=== PATIENT | male | born 1965 | race Caucasian/White ===

== ENCOUNTER 2016-08-22 04:44 | Inpatient (IN) | payer OTHER ==
[2016-08-22 06:05] VITALS: BMI 32.5
--- NOTE | 2016-08-22 06:07 | PDOC ---
History of Present Illness - History of Present Illness Initial Comments: 08/22/16 06:49 Patient is a 51 year old male with significant medical hx of DM and HTN who is presenting to the ED with abdominal pain and vomiting since 8PM last night. Last night the patient ate dinner and developed diffuse abdominal pain afterwards. He then had 3-4 episodes of nausea and vomiting. The patient reports he did not eat anything out of the ordinary; he had chicken for dinner. Patient denies chest pain, shortness of breath, dysuria, flank pain, fever, or chills. Surgical Hx: hernia repairs NKDA <Priscilla Powell - Last Filed: 08/22/16 06:48> <Belen Charles - Last Filed: 08/24/16 01:42> - General Chief Complaint: Pain, Acute Stated Complaint: STOMACH PAIN Time Seen by Provider: 08/22/16 06:06 Past History <Priscilla Powell - Last Filed: 08/22/16 06:48> - Psycho/Social/Smoking Cessation Hx Suicidal Ideation: No Smoking History: Never smoked <Belen Charles - Last Filed: 08/24/16 01:42> - Past Medical History Allergies/Adverse Reactions: Allergies Allergy/AdvReac Type Severity Reaction Status Date / Time morphine AdvReac Nausea Verified 08/22/16 06:45 Home Medications: Ambulatory Orders Lisinopril/Hydrochlorothiazide [Zestoretic 20-12.5 mg Tablet] 1 each PO DAILY Metformin HCl [Glucophage -] 500 mg PO BID 08/22/16 Review of Systems - Review of Systems Comments:: 08/22/16 06:52 CONSTITUTIONAL: Absent: fever, chills, diaphoresis, generalized weakness, malaise, loss of appetite HEENT: Absent: rhinorrhea, nasal congestion, throat pain, throat swelling, difficulty swallowing, mouth swelling, ear pain, eye pain, visual changes CARDIOVASCULAR: Absent: chest pain, syncope, palpitations, irregular heart rate, lightheadedness , peripheral edema RESPIRATORY: Absent: cough, shortness of breath, dyspnea with exertion, orthopnea, wheezing, stridor, hemoptysis GASTROINTESTINAL: Present: abdominal pain, nausea, vomiting Absent: abdominal distension, diarrhea, constipation, melena, hematochezia GENITOURINARY: Absent: dysuria, frequency, urgency, hesitancy, hematuria, flank pain, genital pain MUSCULOSKELETAL: Absent: myalgia, arthralgia, joint swelling SKIN: Absent: rash, itching, pallor HEMATOLOGIC/IMMUNOLOGIC: Absent: easy bleeding, easy bruising, lymphadenopathy, frequent infections ENDOCRINE: Absent: unexplained weight gain, unexplained weight loss, heat intolerance, cold intolerance NEUROLOGIC: Absent: headache, focal weakness or paresthesia, dizziness, unsteady gait, seizure, mental status changes, bladder or bowel incontinence. PSYCHIATRIC: Absent: anxiety, depression, suicidal or homicidal ideation, hallucinations <Priscilla Powell - Last Filed: 08/22/16 06:48> *Physical Exam - Vital Signs Last Vital Signs Temp Pulse Resp BP Pulse Ox 97.8 F 96 H 26 H 156/88 98 08/22/16 06:03 08/22/16 06:03 08/22/16 06:03 08/22/16 06:03 08/22/16 06:03 - Physical Exam Comments: 08/22/16 06:53 GENERAL: Well developed, well nourished. Awake and alert. No acute distress. HEENT: Normocephalic, atraumatic. PERRLA, EOMI. No conjunctival pallor. Sclera are non- icteric. Moist mucous membranes. Oropharynx is clear. NECK: Supple. Full ROM. No JVD. Carotid pulses 2+ and symmetric, without bruits. No thyromegaly. No lymphadenopathy. CARDIOVASCULAR: Regular rate and rhythm. No murmurs, rubs, or gallops. Distal pulses are 2+ and symmetric. PULMONARY: No evidence of respiratory distress. Lungs clear to auscultation bilaterally. No wheezing, rales or rhonchi. ABDOMINAL: Soft. Diffuse abdominal tenderness. Non-distended. No rebound or guarding. No organomegaly. Normoactive bowel sounds. MUSCULOSKELETAL: Normal range of motion at all joints. No bony deformities or tenderness. No CVA tenderness. EXTREMITIES: No cyanosis. No clubbing. No edema. No calf tenderness. SKIN: Warm and dry. Normal capillary refill. No rashes. No jaundice. NEUROLOGICAL: Alert, awake, appropriate. Cranial nerves 2-12 intact. Normal speech. Gait is normal without ataxia. PSYCHIATRIC: Cooperative. Good eye contact. Appropriate mood and affect. <Priscilla Powell - Last Filed: 08/22/16 06:48> - Vital Signs Last Vital Signs Temp Pulse Resp BP Pulse Ox 97.8 F 96 H 26 H 156/88 98 08/22/16 06:03 08/22/16 06:03 08/22/16 06:03 08/22/16 06:03 08/22/16 06:03 <Belen Charles - Last Filed: 08/24/16 01:42> ED Treatment Course - Medications Given in the ED: ED Medications Discontinued Medications Generic Name Dose Route Start Last Admin Trade Name Luis Manuel PRN Reason Stop Dose Admin Morphine Sulfate 2 mg 08/22/16 06:22 08/22/16 06:45 Morphine Injection - IVPUSH 08/22/16 06:23 Not Given ONCE ONE Sodium Chloride 1,000 ml 08/22/16 06:22 08/22/16 06:45 Normal Saline - IV 08/22/16 06:23 1,000 ml ONCE ONE Administration <Priscilla Powell - Last Filed: 08/22/16 06:48> - LABORATORY CBC & Chemistry Diagram: 08/23/16 07:00 08/23/16 07:00 <Belen Charles - Last Filed: 08/24/16 01:42> Medical Decision Making - Medical Decision Making 08/22/16 07:06 PT COMES WITH ABDOMINAL PAIN THAT BEGAN LAST NIGHT AFTER EATING CHICKEN CHEESE AND A SHAY. PAIN KEPT GETTING WORSE SO HE CAME TO THE ER. PAIN SOUNDS LIKE GAS PAIN. PT IS GASSY AT THE LOWER ABDOMEN AND THE LEFT ABDOMEN. NO FLANK PAIN AND NO DYSURIA. PT HAS NEVER HAD KIDNEY STONES, BUT HIS MOM DID. NO RUQ PAIN AND NO DISTENSION. CXR IS NORMAL. PT HAS NO FEVER OR CHILLS. URINE AT BEDSIDE. PT WILL DRINK FOR AN ABD/PELVIS CT SCAN (TO BE DONE AT 9AM) D/C HOME IF LABS AND CT SCAN ARE NORMAL. I WILL SIGN PATIENT OUT TO THE DAY ER DOC. <Belen Charles - Last Filed: 08/24/16 01:42> *DC/Admit/Observation/Transfer - Attestations Scribe Attestion: 08/22/16 06:54 Documentation prepared by Priscilla Powell, acting as medical device engineer for Belen Charles MD. <Priscilla Powell - Last Filed: 08/22/16 06:48> <Belen Charles - Last Filed: 08/24/16 01:42> Diagnosis at time of Disposition: Small bowel obstruction, partial - Discharge Dispostion Condition at time of disposition: Guarded - Referrals
[2016-08-22] MEDS ORDERED: morphine CARPU-JECT 2 MG/1 ML DISP.SYRIN IVPUSH ONE (06:22)
[2016-08-22] MEDS ORDERED: SODIUM CHLORIDE 0.9% 500 ML INFUS.BAG IV ONE (06:22)
[2016-08-22] MEDS ORDERED: morphine CARPU-JECT 2 MG/1 ML DISP.SYRIN ONE (06:32)
[2016-08-22] MEDS ORDERED: KETOROLAC TROMETHAMINE 30 MG/1 ML VIAL IVPUSH ONE (06:46)
[2016-08-22] MEDS ORDERED: KETOROLAC TROMETHAMINE 30 MG/1 ML VIAL ONE (06:50)
[2016-08-22 07:03] LABS: BASOPHIL 0.2 % (0-2.0); MCHC 34.2 g/dl (32.0-35.9); MEAN CELL VOLUME 90.5 fl (80-96); NEUTROPHILS 89.9 % (42.8-82.8); PLATELET COUNT 179 K/MM3 (134-434); RDW 13.1 % (11.9-15.9); WHITE BLOOD COUNT 10.9 K/mm3 (4.0-10.0)
[2016-08-22 07:04] LABS: URINE APPEARANCE CLEAR; URINE BILIRUBIN NEGATIVE (NEGATIVE); URINE COLOR STRAW; URINE GLUCOSE (UA) 3+ (NEGATIVE); URINE KETONE 2+ (NEGATIVE); URINE LEUK ESTERASE NEGATIVE (NEGATIVE); URINE NITRITE NEGATIVE (NEGATIVE); URINE PROTEIN NEGATIVE (NEGATIVE); URINE UROBILINOGEN NEGATIVE E.U./dl (0.2-1.0)
[2016-08-22 07:11] LABS: URINE BLOOD 1+ (NEGATIVE)
[2016-08-22 07:13] LABS: URINE RBC 1 /hpf (0-3); URINE WBC <1 /hpf (3-5)
[2016-08-22 07:26] LABS: ALBUMIN 4.2 g/dl (3.4-5.0); ANION GAP 12 (8-16); BILIRUBIN,TOTAL 0.6 mg/dL (0.2-1.0); CALCIUM 9.9 mg/dL (8.5-10.1); CO2 28 mmol/L (21-32); CREATININE 0.9 mg/dL (0.7-1.3); SGPT/ALT 45 U/L (12-78); TOT PROT 8.1 g/dl (6.4-8.2)
[2016-08-22 07:27] LABS: INR 1.04 (0.82-1.09); PROTHROMBIN TIME (PATIENT) 11.5 SEC (9.98-11.88)
[2016-08-22 07:29] LABS: ALK PHOS 106 U/L (45-117); TROPONIN I < 0.02 ng/ml (0.00-0.05)
[2016-08-22 07:30] LABS: SGOT/AST 26 U/L (15-37)
[2016-08-22 07:31] LABS: GLUCOSE,RANDOM 412 mg/dL (74-106)
--- NOTE | 2016-08-22 07:35 | PDOC ---
*Physical Exam - Vital Signs Last Vital Signs Temp Pulse Resp BP Pulse Ox 97.8 F 96 H 26 H 156/88 98 08/22/16 06:03 08/22/16 06:03 08/22/16 06:03 08/22/16 06:03 08/22/16 06:03 ED Treatment Course - LABORATORY CBC & Chemistry Diagram: 08/22/16 06:34 08/22/16 06:34 - ADDITIONAL ORDERS Additional order review: Laboratory Results 08/22/16 08/22/16 08/22/16 06:34 06:34 06:34 INR 1.04 Sodium 136 Potassium 4.1 Chloride 96 L Carbon Dioxide 28 Anion Gap 12 BUN 15 Creatinine 0.9 Creat Clearance w eGFR > 60 Random Glucose 412 H* Calcium 9.9 Total Bilirubin 0.6 AST 26 ALT 45 Alkaline Phosphatase 106 Creatine Kinase 121 Troponin I < 0.02 Total Protein 8.1 Albumin 4.2 Lipase 251 Urine Color Straw Urine Appearance Clear Urine pH 6.0 Ur Specific [place] 1.040 H Urine Protein Negative Urine Glucose (UA) 3+ H Urine Ketones 2+ H Urine Blood 1+ H Urine Nitrite Negative Urine Bilirubin Negative Urine Urobilinogen Negative Ur Leukocyte Esterase Negative Urine RBC 1 Urine WBC <1 08/22/16 06:34 RBC 5.75 H MCV 90.5 MCHC 34.2 RDW 13.1 MPV 9.0 Neutrophils % 89.9 H Lymphocytes % 5.4 L Monocytes % 4.5 Eosinophils % 0.0 Basophils % 0.2 - Medications Given in the ED: ED Medications Discontinued Medications Generic Name Dose Route Start Last Admin Trade Name Freq PRN Reason Stop Dose Admin Ketorolac Tromethamine 30 mg 08/22/16 06:46 08/22/16 06:55 Toradol Injection - IVPUSH 08/22/16 06:47 30 mg ONCE ONE Administration Morphine Sulfate 2 mg 08/22/16 06:22 08/22/16 06:45 Morphine Injection - IVPUSH 08/22/16 06:23 Not Given ONCE ONE Sodium Chloride 1,000 ml 08/22/16 06:22 08/22/16 06:45 Normal Saline - IV 08/22/16 06:23 1,000 ml ONCE ONE Administration Medical Decision Making - Medical Decision Making 08/22/16 07:08 Patient endorsed to me by Dr. hCarles. Awaiting CT for further evaluation of abdominal pain. 08/22/16 10:31 CT results reviewed with patient. Will place NGT and admit to medicine. Awaiting callback from Dr. Gomez. 08/22/16 11:17 Case d/w KETAN Malhotra, covering Dr. Arriola. Will evaluate. Dr. Gomez has accepted patient to her service. *DC/Admit/Observation/Transfer Diagnosis at time of Disposition: Small bowel obstruction, partial - Discharge Dispostion Condition at time of disposition: Guarded Admit: Yes - Referrals Referrals: Silas Heaton MD [Primary Care Provider] - - Patient Instructions - Post Discharge Activity
[2016-08-22] MEDS ORDERED: SODIUM CHLORIDE 1,000 ML IV STA ×2 (08:48→10:06)
[2016-08-22 09:41] LABS: ACETONE SERUM POSITIVE SMALL 1+ (NEGATIVE)
[2016-08-22] MEDS ORDERED: INSULIN REGULAR HUMAN 100 UNITS/ML *VIAL SQ ONE (10:06)
[2016-08-22] MEDS ORDERED: SODIUM CHLORIDE 1,000 ML IV SCH (11:30)
[2016-08-22] MEDS ORDERED: INSULIN REGULAR HUMAN 100 UNITS/ML *VIAL ONE (11:52)
--- NOTE | 2016-08-22 15:09 | CONSULT ---
Consult Consult Specialty:: surgery Reason for Consultation:: bowel obstruction - History of Present Illness Chief Complaint: abdominal pain History of Present Illness: Patient is a 51 year old male who presented to the ED last night with diffuse abdominal pain. Started suddenly last night and waxes/wanes. He also had 3 episodes of vomiting. Abdomen/pelvis CT revealed partial SBO. He had an open umbilical hernia [place] [address] Arriola. States he had a second surgery a few days later due to surgical complications. Had a NGT at the time. Now refusing NGT in the ED because he recalls how uncomfortable it was. Had 2 BMs this morning. Currently denies nausea, fever, chills, SOB, and CP. - History Source History Provided By: Patient, Family Member Limitations to Obtaining History: No Limitations - Smoking History Smoking history: Never smoked Home Medications - Allergies Allergies/Adverse Reactions: Allergies Allergy/AdvReac Type Severity Reaction Status Date / Time morphine AdvReac Nausea Verified 08/22/16 06:45 - Home Medications Home Medications: Ambulatory Orders Lisinopril/Hydrochlorothiazide [Zestoretic 20-12.5 mg Tablet] 1 each PO DAILY Metformin HCl [Glucophage -] 500 mg PO BID 08/22/16 Physical Exam Vital Signs: Vital Signs Temperature 99.3 F 08/22/16 13:46 Pulse Rate 104 H 08/22/16 13:46 Respiratory Rate 20 08/22/16 13:46 Blood Pressure 146/88 08/22/16 13:46 O2 Sat by Pulse Oximetry (%) 97 08/22/16 13:23 Constitutional: Yes: Well Nourished, No Distress Eyes: Yes: WNL Neck: Yes: Supple Cardiovascular: Yes: Regular Rate and Rhythm Respiratory: Yes: CTA Bilaterally Gastrointestinal: Yes: Other (softly distended, obese, (+) bowel sounds, mild tenderness diffusely, no rebound or guarding) Imaging - Results Chest X-ray: Other (WNL) X-ray: Other (SBO) Cat Scan: Other (partial SBO) Assessment/Plan Dx: Partial SBO most likely due to previous open surgery. Keep NPO today. Avoid NGT at this point. May advance to liquids tomorrow. Dr. Arriola recommending liquids for a few days and then slow advancement to diet as tolerated.
[2016-08-22] MEDS ORDERED: KETOROLAC TROMETHAMINE 30 MG/1 ML VIAL IVPB PRN (15:16)
[2016-08-22] MEDS ORDERED: DEXTROSE 5%-0.45% SALINE 1,000 ML IV SCH (15:30)
--- NOTE | 2016-08-22 20:03 | HP ---
Admitting History and Physical - Admission Chief Complaint: Abdominal pain History of Present Illness: Pt is a 51 y/o male w/ a PMH significant for HT and diabetes. Pt had a hernia repair years ago. Pt now presented to the ER bc of acute onset of abdominal pain wc was generalized and associated w/ nausea and vomiting. Pt denies any diarrhea/constipation. CT scan abd/pelvis showed a partial SBO. Pt refused NGT History Source: Patient - Past Medical History Cardiovascular: Yes: HTN Endocrine: Yes: Diabetes Mellitus - Smoking History Smoking history: Never smoked Home Medications - Allergies Allergies/Adverse Reactions: Allergies Allergy/AdvReac Type Severity Reaction Status Date / Time morphine AdvReac Nausea Verified 08/22/16 06:45 - Home Medications Home Medications: Ambulatory Orders Lisinopril/Hydrochlorothiazide [Zestoretic 20-12.5 mg Tablet] 1 each PO DAILY Metformin HCl [Glucophage -] 500 mg PO BID 08/22/16 Family Disease History - Family Disease History Family History: Unremarkable Review of Systems - Review of Systems Constitutional: reports: Weakness HENT: reports: No Symptoms Neck: reports: No Symptoms Cardiovascular: reports: No Symptoms Respiratory: reports: No Symptoms Gastrointestinal: reports: Abdominal Pain, Nausea, Vomiting Musculoskeletal: reports: No Symptoms Neurological: reports: No Symptoms Physical Examination Vital Signs: Vital Signs Temperature 99.3 F 08/22/16 15:13 Pulse Rate 104 H 08/22/16 13:46 Respiratory Rate 20 08/22/16 13:46 Blood Pressure 146/88 08/22/16 13:46 O2 Sat by Pulse Oximetry (%) 97 08/22/16 13:23 Constitutional: Yes: Well Nourished HENT: Yes: WNL Neck: Yes: Supple Cardiovascular: Yes: WNL, Regular Rate and Rhythm Respiratory: Yes: WNL, Regular, CTA Bilaterally Gastrointestinal: Yes: WNL, Normal Bowel Sounds, Soft Musculoskeletal: Yes: WNL Extremities: Yes: WNL Edema: No Problem List - Problems (1) Small bowel obstruction, partial Assessment/Plan: Cont NPO/IVF Surgical/GI consults called [facility] Advance diet as tolerated Code(s): K56.69 - OTHER INTESTINAL OBSTRUCTION (2) HTN (hypertension) Assessment/Plan: Will hold antihypertensives while NPO and monitor Code(s): I10 - ESSENTIAL (PRIMARY) HYPERTENSION (3) Diabetes Assessment/Plan: Cont Insulin sliding scale w/ coverage while NPO Restart metformin once tolerating diet Code(s): E11.9 - TYPE 2 DIABETES MELLITUS WITHOUT COMPLICATIONS
[2016-08-23] MEDS: DEXTROSE 5%-0.45% SALINE 1,000 ML IV SCH ×3 (03:45→06:15)
[2016-08-23] MEDS ORDERED: INSULIN (NOVOLOG) ASPART 100 UNITS/ML 10ML VIAL ONE ×2 (06:12→21:01)
[2016-08-23] MEDS: INSULIN SLIDING SCALE (NOVOLOG) 1 VIAL SQ SCH ×4 (06:28→21:31)
[2016-08-23 08:11] LABS: BASOPHIL 0.2 % (0-2.0); EOSINOPHIL 3.6 % (0-4.5); MCHC 34.1 g/dl (32.0-35.9); MEAN PLT VOLUME 8.5 fl (7.5-11.1); NEUTROPHILS 57.1 % (42.8-82.8); PLATELET COUNT 148 K/MM3 (134-434); RDW 13.4 % (11.9-15.9); WHITE BLOOD COUNT 4.9 K/mm3 (4.0-10.0)
[2016-08-23 08:22] LABS: ALBUMIN 3.1 g/dl (3.4-5.0); ALK PHOS 75 U/L (45-117); ANION GAP 10 (8-16); BILIRUBIN,TOTAL 0.8 mg/dL (0.2-1.0); CALCIUM 8.4 mg/dL (8.5-10.1); CO2 24 mmol/L (21-32); CREATININE 0.7 mg/dL (0.7-1.3); GLUCOSE,RANDOM 273 mg/dL (74-106); SGOT/AST 13 U/L (15-37); SGPT/ALT 29 U/L (12-78); TOT PROT 6.2 g/dl (6.4-8.2)
[2016-08-23] MEDS: HEPARIN NA (PORCINE) 5,000 UNITS/ML 1ML VIAL SQ SCH ×2 (10:54→21:30)
--- NOTE | 2016-08-23 15:22 | CONSULT ---
Consult Consult Specialty:: gastroenterology Referred by:: Dr Gomez/ Silas Heaton - History of Present Illness History of Present Illness: 51 y/o male with PMH of abdominal hernia repair in 2010([address] Dr Lavon Mcmillan) was doing well until last night when he developed severe abdominal pain, nausea and vomiting. He was diagnosed to have small bowel obstruction. He refused NGT placement. He had 2 bowel movements today. Abdominal pain improved. - Smoking History Smoking history: Never smoked Home Medications - Allergies Allergies/Adverse Reactions: Allergies Allergy/AdvReac Type Severity Reaction Status Date / Time morphine AdvReac Nausea Verified 08/22/16 06:45 - Home Medications Home Medications: Ambulatory Orders Lisinopril/Hydrochlorothiazide [Zestoretic 20-12.5 mg Tablet] 1 each PO DAILY Metformin HCl [Glucophage -] 500 mg PO BID 08/22/16 Physical Exam-GI Vital Signs: Vital Signs Temperature 98.7 F 08/23/16 14:17 Pulse Rate 92 H 08/23/16 14:17 Respiratory Rate 18 08/23/16 08:00 Blood Pressure 124/83 08/23/16 14:17 O2 Sat by Pulse Oximetry (%) 97 08/22/16 21:00 Constitutional: Yes: Well Nourished Eyes: Yes: Conjunctiva Clear HENT: Yes: Atraumatic Neck: Yes: Supple Cardiovascular: Yes: Regular Rate and Rhythm Respiratory: Yes: CTA Bilaterally ...Palpate: Yes: Soft, Tenderness (--suprapubic). No: Firm/Rigid, Guarding, Mass, Pulsatile Mass, Splenomegaly, Tenderness, Rebound Labs: CBC, BMP 08/23/16 07:00 08/23/16 07:00 INR, PTT INR 1.04 (0.82-1.09) 08/22/16 06:34 Problem List - Problems (1) Small bowel obstruction, partial Assessment/Plan: --resolving repeagt FUA reveal less air fluid levels R> IV hydration surgical ff-up Code(s): K56.69 - OTHER INTESTINAL OBSTRUCTION
[2016-08-23] MEDS: SODIUM CHLORIDE 1,000 ML IV SCH (16:44)
--- NOTE | 2016-08-23 19:19 | HOSP ---
Physical Examination Vital Signs: Vital Signs Temperature 98.5 F 08/23/16 18:30 Pulse Rate 86 08/23/16 18:30 Respiratory Rate 14 08/23/16 18:30 Blood Pressure 129/79 08/23/16 18:30 O2 Sat by Pulse Oximetry (%) 97 08/22/16 21:00 Labs: CBC, BMP 08/23/16 07:00 08/23/16 07:00 Hospitalist Encounter Assessment: I was paged by Yasmany Lr and informed that the floor nurse was stuck by a needle when giving patient his Insulin. I was asked to get consent from patient for HIV and hepatitis testing. I explained and discussed the details with the patient and informed him that we will be drawing out blood for this test. Patient gave verbal consent with at bedside. Orders placed for Hepatitis panel and HIV rapid test. Visit type - Emergency Visit Emergency Visit: No - New Patient This patient is new to me today: Yes Date on this admission: 08/23/16 - Critical Care Critical Care patient: No
[2016-08-23 21:22] LABS: HIV 1 & 2 AB NEGATIVE; HIV 1 AGp24 NEGATIVE
--- NOTE | 2016-08-23 22:02 | PN ---
Progress Note, Physician History of Present Illness: Pt feels slightly better No N/V - Current Medication List Current Medications: Active Medications Heparin Sodium (Porcine) (Heparin -) 5,000 unit SQ BID PANTERA Last Admin: 08/23/16 21:30 Dose: 5,000 unit Sodium Chloride (Normal Saline -) 1,000 mls @ 150 mls/hr IV ASDIR PANTERA Stop: 08/25/16 22:09 Last Admin: 08/23/16 16:44 Dose: 150 mls/hr Insulin Aspart (Novolog Vial Sliding Scale -) 1 vial SQ ACHS PANTERA PRN Reason: Protocol Last Admin: 08/23/16 21:31 Dose: 2 units Ketorolac Tromethamine (Toradol Injection -) 30 mg IVPB Q6H PRN PRN Reason: PAIN Stop: 08/27/16 15:15 Last Admin: 08/22/16 15:23 Dose: 30 mg - Objective Vital Signs: Vital Signs Temperature 98.5 F 08/23/16 18:30 Pulse Rate 86 08/23/16 18:30 Respiratory Rate 14 08/23/16 20:36 Blood Pressure 129/79 08/23/16 18:30 O2 Sat by Pulse Oximetry (%) 97 08/23/16 20:36 Constitutional: Yes: Well Nourished Cardiovascular: Yes: WNL, Regular Rate and Rhythm Respiratory: Yes: WNL, Regular, CTA Bilaterally Gastrointestinal: Yes: Normal Bowel Sounds, Soft, Other (Minimal tenderness on palpation) Labs: CBC, BMP 08/23/16 07:00 08/23/16 07:00 INR, PTT INR 1.04 (0.82-1.09) 08/22/16 06:34 Problem List - Problems (1) Small bowel obstruction, partial Assessment/Plan: KUB showed slightly decreased air fluid level Will start clears in am and see if pt tolerates Cont IVF Surgical/GI consults Serial KUB Code(s): K56.69 - OTHER INTESTINAL OBSTRUCTION (2) HTN (hypertension) Assessment/Plan: Will hold antihypertensives while NPO and monitor Code(s): I10 - ESSENTIAL (PRIMARY) HYPERTENSION (3) Diabetes Assessment/Plan: Cont Insulin sliding scale w/ coverage while NPO Restart metformin once tolerating diet Code(s): E11.9 - TYPE 2 DIABETES MELLITUS WITHOUT COMPLICATIONS
[2016-08-24] MEDS: SODIUM CHLORIDE 1,000 ML IV SCH ×2 (06:02→14:24)
[2016-08-24] MEDS ORDERED: INSULIN (NOVOLOG) ASPART 100 UNITS/ML 10ML VIAL ONE ×2 (06:16→16:26)
[2016-08-24] MEDS: INSULIN SLIDING SCALE (NOVOLOG) 1 VIAL SQ SCH ×4 (07:01→21:33)
[2016-08-24 08:07] LABS: BASOPHIL 0.2 % (0-2.0); EOSINOPHIL 5.5 % (0-4.5); MCH 31.1 pg (25.7-33.7); MEAN CELL VOLUME 91.3 fl (80-96); MEAN PLT VOLUME 8.4 fl (7.5-11.1); NEUTROPHILS 51.5 % (42.8-82.8); PLATELET COUNT 140 K/MM3 (134-434); RDW 13.2 % (11.9-15.9); WHITE BLOOD COUNT 4.1 K/mm3 (4.0-10.0)
[2016-08-24 08:25] LABS: ALBUMIN 2.7 g/dl (3.4-5.0); ANION GAP 5 (8-16); CALCIUM 7.9 mg/dL (8.5-10.1); CO2 24 mmol/L (21-32); GLUCOSE,RANDOM 162 mg/dL (74-106)
[2016-08-24 08:30] LABS: ALK PHOS 65 U/L (45-117); BILIRUBIN,TOTAL 0.6 mg/dL (0.2-1.0); CREATININE 0.5 mg/dL (0.7-1.3); SGOT/AST 11 U/L (15-37); SGPT/ALT 22 U/L (12-78); TOT PROT 5.5 g/dl (6.4-8.2)
[2016-08-24] MEDS: HEPARIN NA (PORCINE) 5,000 UNITS/ML 1ML VIAL SQ SCH ×2 (10:33→21:32)
--- NOTE | 2016-08-24 21:03 | PN ---
Progress Note, Physician - Current Medication List Current Medications: Active Medications Heparin Sodium (Porcine) (Heparin -) 5,000 unit SQ BID PANTERA Last Admin: 08/24/16 10:33 Dose: 5,000 unit Sodium Chloride (Normal Saline -) 1,000 mls @ 150 mls/hr IV ASDIR PANTERA Stop: 08/25/16 22:09 Last Admin: 08/24/16 14:24 Dose: 150 mls/hr Insulin Aspart (Novolog Vial Sliding Scale -) 1 vial SQ ACHS PANTERA PRN Reason: Protocol Last Admin: 08/24/16 16:31 Dose: 2 units Ketorolac Tromethamine (Toradol Injection -) 30 mg IVPB Q6H PRN PRN Reason: PAIN Stop: 08/27/16 15:15 Last Admin: 08/22/16 15:23 Dose: 30 mg - Objective Vital Signs: Vital Signs Temperature 98.1 F 08/24/16 17:45 Pulse Rate 82 08/24/16 17:45 Respiratory Rate 18 08/24/16 17:45 Blood Pressure 137/81 08/24/16 17:45 O2 Sat by Pulse Oximetry (%) 97 08/24/16 09:00 Labs: CBC, BMP 08/24/16 06:30 08/24/16 06:30 INR, PTT INR 1.04 (0.82-1.09) 08/22/16 06:34 Problem List - Problems (1) Small bowel obstruction, partial Code(s): K56.69 - OTHER INTESTINAL OBSTRUCTION (2) HTN (hypertension) Code(s): I10 - ESSENTIAL (PRIMARY) HYPERTENSION (3) Diabetes Code(s): E11.9 - TYPE 2 DIABETES MELLITUS WITHOUT COMPLICATIONS
[2016-08-24] MEDS: KCL 10 MEQ IVPB 100 ML IVPB SCH ×2 (21:30→23:00)
[2016-08-24] MEDS: DEXTROSE 5%-0.45% SALINE 1,000 ML IV SCH (21:39)
[2016-08-25] MEDS: KCL 10 MEQ IVPB 100 ML IVPB SCH (00:15)
[2016-08-25] MEDS: INSULIN SLIDING SCALE (NOVOLOG) 1 VIAL SQ SCH ×4 (06:53→21:21)
[2016-08-25 08:22] LABS: BASOPHIL 0.3 % (0-2.0); EOSINOPHIL 3.1 % (0-4.5); MCH 31.3 pg (25.7-33.7); MCHC 34.3 g/dl (32.0-35.9); MEAN CELL VOLUME 91.1 fl (80-96); MEAN PLT VOLUME 8.3 fl (7.5-11.1); NEUTROPHILS 55.2 % (42.8-82.8); PLATELET COUNT 145 K/MM3 (134-434); RDW 12.9 % (11.9-15.9); WHITE BLOOD COUNT 3.9 K/mm3 (4.0-10.0)
[2016-08-25 08:42] LABS: ALBUMIN 2.9 g/dl (3.4-5.0); ANION GAP 6 (8-16); CO2 26 mmol/L (21-32); GLUCOSE,RANDOM 211 mg/dL (74-106)
[2016-08-25 08:46] LABS: ALK PHOS 82 U/L (45-117); BILIRUBIN,TOTAL 0.6 mg/dL (0.2-1.0); CREATININE 0.6 mg/dL (0.7-1.3); SGOT/AST 13 U/L (15-37); SGPT/ALT 24 U/L (12-78); TOT PROT 5.8 g/dl (6.4-8.2)
[2016-08-25] MEDS: HEPARIN NA (PORCINE) 5,000 UNITS/ML 1ML VIAL SQ SCH ×2 (09:55→21:20)
[2016-08-25] MEDS: DEXTROSE 5%-0.45% SALINE 1,000 ML IV SCH (11:32)
--- NOTE | 2016-08-25 19:09 | PN ---
GI Progress Note Subjective: had seveeral bowel movements today, no nasuea, no vomiting, tolerated full liquids, abdominal x-rays reviewed--air fluid levels resolved - Objective Vital Signs: Vital Signs Temperature 98.0 F 08/25/16 16:10 Pulse Rate 110 H 08/25/16 16:10 Respiratory Rate 18 08/25/16 16:10 Blood Pressure 159/89 08/25/16 16:10 O2 Sat by Pulse Oximetry (%) 98 08/24/16 21:00 Constitutional: Well Nourished Eyes: Yes: Conjunctiva Clear HENT: Yes: Atraumatic Neck: Yes: Supple Cardiovascular: Yes: Regular Rate and Rhythm Respiratory: Yes: CTA Bilaterally ...Palpate: Yes: Soft. No: Firm/Rigid, Guarding, Hepatomegaly, Mass, Pulsatile Mass, Splenomegaly, Tenderness, Tenderness, Epigastium Labs: CBC, BMP 08/25/16 07:00 08/25/16 07:00 INR, PTT INR 1.04 (0.82-1.09) 08/22/16 06:34 Problem List - Problems (1) Small bowel obstruction, partial Assessment/Plan: --resolvwed R> no fruit, no vegtable diet asked to ff-up in the office Code(s): K56.69 - OTHER INTESTINAL OBSTRUCTION
[2016-08-25] MEDS ORDERED: INSULIN (NOVOLOG) ASPART 100 UNITS/ML 10ML VIAL ONE (21:19)
--- NOTE | 2016-08-25 22:54 | PN ---
Progress Note, Physician History of Present Illness: Pt tolerating full liquids - Current Medication List Current Medications: Active Medications Heparin Sodium (Porcine) (Heparin -) 5,000 unit SQ BID [facility] Last Admin: 08/25/16 21:20 Dose: 5,000 unit Dextrose/Sodium Chloride (D5-1/2ns -) 1,000 mls @ 75 mls/hr IV ASDIR [facility] Last Admin: 08/25/16 11:32 Dose: 75 mls/hr Insulin Aspart (Novolog Vial Sliding Scale -) 1 vial SQ ACHS [facility] PRN Reason: Protocol Last Admin: 08/25/16 21:21 Dose: 2 units Ketorolac Tromethamine (Toradol Injection -) 30 mg IVPB Q6H PRN PRN Reason: PAIN Stop: 08/27/16 15:15 Last Admin: 08/22/16 15:23 Dose: 30 mg - Objective Vital Signs: Vital Signs Temperature 98.0 F 08/25/16 16:10 Pulse Rate 110 H 08/25/16 16:10 Respiratory Rate 20 08/25/16 20:02 Blood Pressure 159/89 08/25/16 16:10 O2 Sat by Pulse Oximetry (%) 100 08/25/16 20:02 Cardiovascular: Yes: WNL, Regular Rate and Rhythm Respiratory: Yes: WNL, Regular, CTA Bilaterally Gastrointestinal: Yes: WNL, Normal Bowel Sounds, Soft Labs: CBC, BMP 08/25/16 07:00 08/25/16 07:00 INR, PTT INR 1.04 (0.82-1.09) 08/22/16 06:34 Problem List - Problems (1) Small bowel obstruction, partial Assessment/Plan: [id number] w/ surgeon Dr. Arriola who saw pt and decided that pt can go home on liquid diet and f/u in office as oputpt Will repeat abdominal xray in am and if stable will then dc home on full loiquids and f/u in office on monday wc was explained to pt F/U w/ GI for colonscopy as outpt Code(s): K56.69 - OTHER INTESTINAL OBSTRUCTION (2) HTN (hypertension) Assessment/Plan: BP remains stable off meds DC IVF Code(s): I10 - ESSENTIAL (PRIMARY) HYPERTENSION (3) Diabetes Assessment/Plan: Cont Insulin sliding scale w/ coverage Code(s): E11.9 - TYPE 2 DIABETES MELLITUS WITHOUT COMPLICATIONS
[2016-08-26] MEDS: INSULIN SLIDING SCALE (NOVOLOG) 1 VIAL SQ SCH ×2 (06:34→11:14)
[2016-08-26] MEDS: HEPARIN NA (PORCINE) 5,000 UNITS/ML 1ML VIAL SQ SCH (09:40)
[2016-08-26 11:52] VITALS: BP 148/86; PULSE 88; TEMP 98.8
== END 2016-08-26 13:06 | disposition home or self-care (01) | DRG 247 ==
LOC: JER 04:44 → JERBED 11:17 → J6S 13:40
PROVIDERS: ADMIT Internal Medicine; ATTEND Internal Medicine
DX: K56.69 Other intestinal obstruction (principal); I10 Essential (primary) hypertension; E11.9 Type 2 diabetes mellitus without complications
CPT/HCPCS: 36415; 71020-TC; 74000-TC; 74020-TC; 74176-TC; 80053; 81003; 81015; 82009; 82550; 83690; 84484; 85025; 85610; 86803; 87340; 87389; 99284-25; J1644